=== PATIENT | male | born 1985 | race African-American/Black ===

== ENCOUNTER 2023-11-24 18:35 | Emergency (ER) | payer BC ==
[~2023-11-24] VITALS: Ht 175.3 cm; Wt 90.7 kg
[2023-11-24 18:35] VITALS: O2SAT 98
[2023-11-24] MEDS ORDERED: ONDANSETRON ODT4 MG PO (19:08)
== END 2023-11-24 19:18 | disposition home or self-care (01) ==
LOC: FSED 18:53
DX: R11.2 Nausea with vomiting, unspecified (principal); R51.9 Headache, unspecified; T36.8X5A Adverse effect of other systemic antibiotics, initial encounter
CPT/HCPCS: 99282